=== PATIENT | female | born 1960 | race Caucasian/White ===

== ENCOUNTER 2019-06-07 22:01 | Emergency (ER) | payer OTHER ==
--- NOTE | 2019-06-07 22:50 | RAD ---
Exam:Left shoulder 2 views HISTORY: Pain COMPARISON: None FINDINGS: Anterior-inferior dislocation of the humeral head with respect to the glenoid. Possible Hil l-Sachs deformity. Postreduction films are recommended. IMPRESSION: Dislocation with possible fracture. Postreduction films are recommended.
[2019-06-07] MEDS ORDERED: Morphine 4 MG/ML VIAL ONE (22:55)
[2019-06-07] MEDS ORDERED: Ondansetron PF 4 MG/2 ML Vial ONE (22:55)
[2019-06-07] MEDS ORDERED: Ketamine 50 MG/ML (10ML VIAL) ONE (23:15)
--- NOTE | 2019-06-08 08:25 | RAD ---
LEFT SHOULDER POST REDUCTION TWO VIEWS: INDICATIONS: Post shoulder dislocation reduction. COMPARISON: Pre-reduction films. FINDINGS: The anterior shoulder dislocation has been reduced. The humeral head appears normally positioned over the glenoid. There is a fracture fragment from the humeral head, as noted on the pre-reduction films , consistent with Hill-Sachs fracture and deformity. The AC joint is normally aligned. IMPRESSION: 1. Reduction of the previously identified shoulder dislocation. 2. Fracture from the humeral head again noted. POS: [facility]
== END 2019-06-08 00:31 | disposition home or self-care (01) ==
LOC: ERS 22:01
DX: S43.015A Anterior dislocation of left humerus, initial encounter (principal); E78.5 Hyperlipidemia, unspecified; G43.909 Migraine, unspecified, not intractable, without status migrainosus; E03.9 Hypothyroidism, unspecified; F32.9 Major depressive disorder, single episode, unspecified; F17.210 Nicotine dependence, cigarettes, uncomplicated; Z79.899 Other long term (current) drug therapy; W19.XXXA Unspecified fall, initial encounter
CPT/HCPCS: 23650; 96361; 96374; 96375; 99156; J2270; J2405

== ENCOUNTER 2019-07-01 14:09 | Outpatient (CLI) | payer OTHER ==
--- NOTE | 2019-07-05 14:38 | MMO ---
Bilateral MAMMO Bilat Screen [facility]. CLINICAL HISTORY: Patient is 59 years old and is seen for screening. The patient has no family history of breast cancer. The patient has no personal history of cancer. VIEWS: The views performed were: bilateral craniocaudal with tomosynthesis and bilateral mediolateral oblique with tomosynthesis. FILMS COMPARED: The present examination has been compared to prior imaging studies performed at on 05/23/2015 and 05/26/2016. This study has been interpreted with the assistance of computer-aided detection. MAMMOGRAM FINDINGS: The breasts are heterogeneously dense, which could obscure a lesion on mammography. There are benign appearing calcifications seen in both breasts. There are no suspicious masses, suspicious calcifications, or new areas of architectural distortion. IMPRESSION: THERE IS NO MAMMOGRAPHIC EVIDENCE OF MALIGNANCY. A ROUTINE FOLLOW-UP MAMMOGRAM IN 1 YEAR IS RECOMMENDED. THE RESULTS OF THIS EXAM WERE SENT TO THE PATIENT. ACR BI-RADS Category 2 - Benign finding MAMMOGRAPHY NOTE: 1. A negative mammogram report should not delay a biopsy if a dominant of clinically suspicious mass is present. 2. Approximately 10% to 15% of breast cancers are not detected by mammography. 3. Adenosis and dense breasts may obscure an underlying neoplasm. Reported by: JAVIER MEJIA MD Electonically Signed: [id number]
== END 2019-07-01 14:10 | disposition home or self-care (01) ==
LOC: BICMAMMO 14:09
PROVIDERS: ATTEND Family Medicine
DX: Z12.31 Encounter for screening mammogram for malignant neoplasm of breast (principal)
CPT/HCPCS: 77063; 77067

== ENCOUNTER 2019-10-18 08:11 | Outpatient (CLI) | payer OTHER ==
--- NOTE | 2019-10-18 11:27 | MRI ---
MRI OF THE LEFT SHOULDER WITHOUT CONTRAST: Date: 10/18/2019 INDICATION: History of an anterior inferior shoulder dislocation with left shoulder pain. COMPARISON: Radiographs of the left shoulder dated and 06/07/2019. FINDINGS: There is a Hill-Sachs deformity involving the superior and posterior humeral head. There is a comminu [place] fracture involving the anterior and mid aspect of the greater tuberosity. There is abnormal incre ased T2 signal involving the humeral attachment of the anterior inferior glenohumeral ligament suspic ious for small partial thickness avulsion injury. The ligament does appear to remain intact at the le kimberly of the humerus on image 14 of series 5. There is a full thickness tear involving the anterior and anterior inferior glenohumeral labrum. Glenohumeral articular surface is normal appearing. Biceps an chor is intact. The biceps tendon is located. There is a partial thickness undersurface tear involvin g the anterior to mid supraspinatus that is low grade. The rotator cuff tendon specifically to the cuadra praspinatus remain intact due to the comminuted fracture fragments of the greater tuberosity. The ter es minor and subscapularis remain intact. 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 No muscular atro phy is evident. IMPRESSION: Post-traumatic changes to the left glenohumeral joint consistent with the patient's history of an ant erior inferior shoulder dislocation. There is a comminuted fracture involving the anterior to mid greater tuberosity at the site of the at tachment of the supraspinatus, as well as portions of the anterior to mid infraspinatus. There is a partial thickness low grade articular surface tear involving the supraspinatus that occupi es approximately 20% of the tendon thickness. There is a full thickness tear involving the anterior and anterior inferior glenoid labrum. There is a Grade I to Grade II sprain involving the anterior inferior glenohumeral ligamentous attach ment to the humerus with some underlying marrow edema in the proximal humerus. POS: [facility]
== END 2019-10-18 08:12 | disposition home or self-care (01) ==
LOC: BICMRI 08:11
PROVIDERS: ATTEND Orthopaedic Surgery
DX: S43.005A Unspecified dislocation of left shoulder joint, initial encounter (principal); S42.252A Displaced fracture of greater tuberosity of left humerus, initial encounter for closed fracture; M75.112 Incomplete rotator cuff tear or rupture of left shoulder, not specified as traumatic; S43.492A Other sprain of left shoulder joint, initial encounter